=== PATIENT | female | born 2000 | race Caucasian/White ===

== ENCOUNTER 2020-05-18 16:38 | Emergency (ER) | payer MEDICAID, SELFPAY ==
[2020-05-18 17:23] VITALS: PULSE 78; RESP 16; TEMP 36.3; O2SAT 99; BMI 27.3
--- NOTE | 2020-05-18 17:45 | ED.URI ---
HPI - URI/Sore Throat General Chief Complaint: Upper Respiratory Symptoms <Liz Ozuna NP - Last Filed: 05/18/20 18:07> Stated Complaint: ?STREP THROAT <Liz Ozuna NP - Last Filed: 05/18/20 18:07> Time Seen by Provider: 05/18/20 17:45 <Liz Ozuna NP - Last Filed: 05/18/20 18:07> Source: patient <Liz Ozuna NP - Last Filed: 05/18/20 18:07> Mode of arrival: ambulatory <SHAHEED Castano Last Filed: 05/18/20 18:07> Limitations: no limitations <Liz Ozuna NP - Last Filed: 05/18/20 18:07> History of Present Illness HPI Narrative: Sore throat times several days. No fevers, chills. No cold-like symptoms. History of strep and feels similar. <Liz Ozuna NP - Last Filed: 05/18/20 18:07> MD elicited complaint: cough <SHAHEED Castano Last Filed: 05/18/20 18:07> Onset (ago): day(s) <SHAHEED Castano Last Filed: 05/18/20 18:07> Consistency: constant <Liz Ozuna NP - Last Filed: 05/18/20 18:07> Severity: mild <SHAHEED Castano Last Filed: 05/18/20 18:07> Able to tolerate fluids by mouth: Yes <SHAHEED Castano Last Filed: 05/18/20 18:07> Related Data Home Medications: Previous Rx's Medication Instructions Recorded acetaminophen 650 mg PO Q6H PRN #20 cap 05/18/20 amoxicillin 500 mg PO BID #14 cap 05/18/20 ibuprofen 600 mg PO Q8H PRN #20 tab 05/18/20 <SHAHEED Castano Last Filed: 05/18/20 18:07> Allergies/Adverse Reactions: Allergies Allergy/AdvReac Type Severity Reaction Status Date / Time No Known Allergies Allergy Verified 05/18/20 17:22 <Liz Ozuna NP - Last Filed: 05/18/20 18:07> Review of Systems Review of Systems: Yes all other systems are reviewed and are negative <Liz Ozuna NP - Last Filed: 05/18/20 18:07> Constitutional: Constitutional: Reports no additional constitutional complaints, Denies chills, Denies fever(s) and Denies headache(s) <Liz Ozuna NP - Last Filed: 05/18/20 18:07> Eyes: Eyes: Reports no additional eye complaints and Denies change in vision <Liz Ozuna NP - Last Filed: 05/18/20 18:07> ENT: Denies headache(s), Denies nasal congestion, Denies nasal discharge and Reports sore throat <Liz Ozuna NP - Last Filed: 05/18/20 18:07> Cardiovascular: Cardiovascular: Reports no additional cardiovascular complaints, Denies chest pain, Denies leg edema and Denies dyspnea <Liz Ozuna NP - Last Filed: 05/18/20 18:07> Respiratory: Respiratory: Reports no additional respiratory complaints, Denies cough and Denies dyspnea <Liz Ozuna NP - Last Filed: 05/18/20 18:07> Gastrointestinal: Gastrointestinal: Reports no additional gastrointestinal complaints, Denies abdominal pain, Denies diarrhea and Denies vomiting <Liz Ozuna NP - Last Filed: 05/18/20 18:07> Musculoskeletal: Musculoskeletal: Reports no additional musculoskeletal complaints, Denies arthralgias and Denies joint swelling <Liz Ozuna NP - Last Filed: 05/18/20 18:07> Integumentary/Breasts: Skin/Breast: Reports system reviewed and no additional complaints, except as docu and Denies rash <Liz Ozuna NP - Last Filed: 05/18/20 18:07> Neurologic: Reports system reviewed and no additional complaints, except as documented, Denies Abnormal speech present and Denies headache(s) <Liz Ozuna NP - Last Filed: 05/18/20 18:07> PMFSH Past Medical History Attestation statement: The following information was validated with the patient. <Liz Ozuna NP - Last Filed: 05/18/20 18:07> Source: obtained from family and nursing notes reviewed <Liz Ozuna NP - Last Filed: 05/18/20 18:07> Medical History: Medical History Strep pharyngitis <Liz Ozuna NP - Last Filed: 05/18/20 18:07> Social History Social History: Social History Advance Directives: No Advance Directives Information Provided: Yes <Liz Ozuna NP - Last Filed: 05/18/20 18:07> Physical Exam Vital Signs and I&O and Narrative: Vital Signs and I&O: Vital Signs Temp 97.3 F 05/18/20 17:23 Pulse 78 05/18/20 17:23 Resp 16 05/18/20 17:23 Pulse Ox 99 05/18/20 17:23 Intake & Output 05/18/20 05/18/20 05/19/20 06:59 18:59 06:59 Weight 70 kg Body Mass Index 27.3 <Liz Ozuna NP - Last Filed: 05/18/20 18:07> Vital Signs and I&O: Vital Signs Temp 97.3 F 05/18/20 17:23 Pulse 78 05/18/20 17:23 Resp 16 05/18/20 17:23 Pulse Ox 99 05/18/20 17:23 Intake & Output 05/18/20 05/18/20 05/19/20 06:59 18:59 06:59 Weight 70 kg Body Mass Index 27.3 <Eddie Obrien DO - Last Filed: 05/19/20 02:39> Const: General: cooperative, healthy appearing, comfortable and no acute distress <Liz Ozuna NP - Last Filed: 05/18/20 18:07> Orientation/consciousness: patient oriented x3 <Liz Ozuna NP - Last Filed: 05/18/20 18:07> Limitations: no limitations <SHAHEED Castano Last Filed: 05/18/20 18:07> HENMT: Head: Yes normal to inspection <Liz Ozuna NP - Last Filed: 05/18/20 18:07> Ears: hearing grossly normal bilaterally <Liz Ozuna NP - Last Filed: 05/18/20 18:07> General nose exam: Normal external nose present <Liz Ozuna NP - Last Filed: 05/18/20 18:07> Face and sinus: Yes normal facial exam <Liz Ozuna NP - Last Filed: 05/18/20 18:07> Mouth: Normal oral and palatal mucosa present <Liz Ozuna NP - Last Filed: 05/18/20 18:07> Throat: Yes tonsils normal ( Bilateral tonsillar exudate and erythema. Uvula midline), Yes abnormal tonsil and No peritonsillar mass <Liz Ozuna NP - Last Filed: 05/18/20 18:07> Eyes: General: appearance normal, both eyes and all related structures <Liz Ozuna NP - Last Filed: 05/18/20 18:07> Pupils: Equal, round and reactive pupils present <Liz Ozuna NP - Last Filed: 05/18/20 18:07> Neck: Neck: Yes normal visual inspection <Liz Ozuna NP - Last Filed: 05/18/20 18:07> Chest: Chest palpation & inspection: normal inspection of the chest <SHAHEED Castano Last Filed: 05/18/20 18:07> Resp: Effort & Inspection: normal respiratory effort <SHAHEED Castano Last Filed: 05/18/20 18:07> Auscultation: clear to auscultation bilaterally <Liz Ozuna NP - Last Filed: 05/18/20 18:07> Cardio: Rate: regular rate <Liz Ozuna NP - Last Filed: 05/18/20 18:07> Rhythm: regular rhythm <Liz Ozuna NP - Last Filed: 05/18/20 18:07> Peripheral pulses: Peripheral pulses 2+ throughout <Liz Ozuna NP - Last Filed: 05/18/20 18:07> GI: Inspection: Yes normal to inspection <Liz Ozuna NP - Last Filed: 05/18/20 18:07> Palpation (GI): Soft to palpation and nontender <Liz Ozuna NP - Last Filed: 05/18/20 18:07> Auscultation: normal bowel sounds <Liz Ozuna NP - Last Filed: 05/18/20 18:07> Back/Spine/Pelvis: Thoracic/Lumbar Spine: thoracic and lumbar spine normal to inspection <Liz Ozuna NP - Last Filed: 05/18/20 18:07> Skin: General skin exam: no rashes or lesions noted <Liz Ozuna NP - Last Filed: 05/18/20 18:07> Neuro: General: patient oriented x3, no focal motor deficits and normal sensation to monofilament <Liz Ozuna NP - Last Filed: 05/18/20 18:07> Cranial nerves: Yes Equal, round and reactive pupils present <Liz Ozuna NP - Last Filed: 05/18/20 18:07> Cognition (Neuro): normal cognition <Liz Ozuna NP - Last Filed: 05/18/20 18:07> Speech: No Abnormal speech present <Liz Ozuna NP - Last Filed: 05/18/20 18:07> Gait exam (Neuro): Normal gait present <Liz Ozuna NP - Last Filed: 05/18/20 18:07> Motor exam (neuro): 5/5 motor strength present throughout <Liz Ozuna NP - Last Filed: 05/18/20 18:07> Extrem: General: Yes normal to inspection <Liz Ozuna NP - Last Filed: 05/18/20 18:07> MDM - URI/Sore Throat MDM Narrative Medical decision making narrative: exam c/w with strep pharyngitis. Rapid strep pending. Will treat as presumed. <Liz Ozuna NP - Last Filed: 05/18/20 18:07> Discharge Plan Discharge Clinical Impression: Pharyngitis <Liz Ozuna NP - Last Filed: 05/18/20 18:07> Patient Disposition: Home, Self-Care <Liz Ozuna NP - Last Filed: 05/18/20 18:07> Instructions: Pharyngitis (ED) <Liz Ozuna NP - Last Filed: 05/18/20 18:07> Additional Instructions: Salt water gargles Motrin or Tylenol for pain or fever <Liz Ozuna NP - Last Filed: 05/18/20 18:07> Prescriptions: New amoxicillin 500 mg capsule 500 mg PO BID Qty: 14 RF: 0 ibuprofen 600 mg tablet 600 mg PO Q8H PRN (Reason: fever or pain) Qty: 20 RF: 0 acetaminophen 325 mg capsule 650 mg PO Q6H PRN (Reason: fever or pain) Qty: 20 RF: 0 <Liz Ozuna NP - Last Filed: 05/18/20 18:07> Referrals: Aaron Sky [Physician] - 2 days (if you want tonsils out) <Liz Ozuna NP - Last Filed: 05/18/20 18:07> Stand Alone Forms: Work/School Release <Liz Ozuna NP - Last Filed: 05/18/20 18:07> Interventions: ED Discharge Assessment Last Done: 05/18/20 19:34 <Liz Ozuna NP - Last Filed: 05/18/20 18:07> Discharge Date/Time: 05/18/20 18:30 <Liz Ozuna NP - Last Filed: 05/18/20 18:07>
== END 2020-05-18 18:30 | disposition home or self-care (01) ==
PROVIDERS: Emergency Provider Emergency Medicine
DX: J02.9 Acute pharyngitis, unspecified (principal)
CPT/HCPCS: 87071; 99283

== ENCOUNTER 2023-01-18 09:31 | Emergency (ER) | payer OTHER, SELFPAY ==
--- NOTE | ~2023-01-18 | XR_ITS ---
EXAMINATION: XR SHOULDER, RIGHT CLINICAL INFORMATION: Pain. Fall. COMPARISON: None available. TECHNIQUE: 3 views of the right shoulder. FINDINGS: The bones and soft tissues are normal. No fracture. Glenohumeral and acromioclavicular alignment is anatomic with normal joint space. No abnormal soft tissue calcifications. XR/XR shoulder RT min 2V IMPRESSION: Normal right shoulder.
[2023-01-18 09:34] VITALS: BP 144/88; PULSE 99; RESP 19; TEMP 36.6; O2SAT 98; BMI 31.9
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
[2023-01-18] MEDS: Ketorolac Tromethamine 30 MG/ML VIAL IM (10:26)
--- NOTE | 2023-01-18 10:27 | PC.NURSE ---
patient a&ox3, c/o rt arm pain, + csm/pulses to RUE, pt medicated per order, tech to apply sling, will continue to monitor
== END 2023-01-18 10:34 | disposition home or self-care (01) ==
PROVIDERS: Emergency Provider Internal Medicine
DX: S43.401A Unspecified sprain of right shoulder joint, initial encounter (principal); X58.XXXA Exposure to other specified factors, initial encounter; Y93.9 Activity, unspecified; Y92.9 Unspecified place or not applicable; Y99.9 Unspecified external cause status; Z79.899 Other long term (current) drug therapy
CPT/HCPCS: 73030; 96372; 99284; J1885

== ENCOUNTER 2023-06-24 10:03 | Emergency (ER) | payer OTHER, SELFPAY ==
--- NOTE | ~2023-06-24 | US_ITS ---
EXAMINATION: US OBSTETRICAL ULTRASOUND CLINICAL INFORMATION: 11 week , complains of vaginal pain COMPARISON: None available. LMP: 05/14/2023. Gestational age by maternal dates is 5 weeks and 6 days. Estimated date of delivery by maternal dates is 02/03/2023. TECHNIQUE: Real-time transabdominal and transvaginal vaginal ultrasound examination FINDINGS: There is no intrauterine gestational sac, no yolk sac, embryo/fetus, and cardiac activity. There is no significant subchorionic hemorrhage or hematoma. Endometrial stripe measures 0.49 cm in thickness. HR: Not demonstrated. MATERNAL ADNEXA: The right maternal ovary measures 2.4 x 2.0 x 2.1 cm. Inferior lateral to the right ovary, an isoechoic solid lesion is seen measuring 1.5 x 1.2 x 1.6 cm in size with vascular Doppler flow signals, The left maternal ovary measures 3.0 x 1.7 x 1.3 cm. There is no significant maternal adnexal mass. No maternal pelvic ascites. US/US OB pelvic and transvaginal IMPRESSION: 1. No evidence of intrauterine gestation. 2. Right adnexal solid lesion with vascular flow signal but without heartbeat is seen abutting the right ovary. Findings could be suspicious of ectopic . Correlation with beta hCG level is recommended.
[2023-06-24 10:09] VITALS: BP 149/92; PULSE 71; RESP 18; TEMP 36.7; O2SAT 100; BMI 29.3
[2023-06-24 10:34] LABS: MANUAL DIFF FLAG NO
[2023-06-24 10:36] LABS: Basophils Absolute Auto 0.1 X10*3/uL (0.0-0.2); Basophils Percent Auto 0.7 % (0-2); Eosinophils Absolute Auto 0.3 X10*3/uL (0.0-0.4); Eosinophils Percent Auto 3.6 % (0-4); Hematocrit 41.2 % (37.0-47.0); Hemoglobin 13.8 g/dl (12.0-16.0); Imm Gran Abs Auto 0.01 X10*3/uL (0.00-0.03); Imm Gran Pct Auto 0.1 % (0.0-0.4); Lymphocytes Absolute Auto 2.1 X10*3/uL (1.2-4.9); Lymphocytes Percent Auto 26.1 % (20-40); Mean Corpuscular HGB Conc 33.5 g/dl (31.0-35.0); Mean Corpuscular Hemoglobin 29.6 pg (27.0-33.0); Mean Corpuscular Volume 88.2 fL (80.0-98.0); Mean Platelet Volume 9.9 fL (9.4-12.3); Monocytes Absolute Auto 0.5 X10*3/uL (0.1-1.2); Monocytes Percent Auto 6.6 % (2-11); Neutrophils Absolute Auto 5.1 x10*3/uL (2.0-8.3); Neutrophils Percent Auto 62.9 % (45-73); Platelet Count 260 X10*3/uL (160-400); Red Blood Count 4.67 X10*6/uL (4.20-5.50); White Blood Count 8.1 X10*3/uL (4.8-10.8)
--- NOTE | 2023-06-24 10:38 | ED.FEMALEGU ---
HPI - Female Genitourinary General Chief complaint: Urogenital-Female Stated complaint: -vaginal bleeding Time Seen by Provider: 06/24/23 10:30 Source: patient Mode of arrival: ambulatory Limitations: no limitations History of Present Illness HPI Narrative: 22 yo female no PMH G1 LMP last normal one she thinks start of April finished an unusual menses 05/14 has had + home test. Has not seen OB yet. Over the weekend light spotting and cramping, no clots, no tissue, nothing heavier than a period and pain has now resolved. This is her first . No other symptoms. MD elicited complaint: vaginal bleeding and pelvic pain Onset (ago): day(s) (3) Location of symptoms: suprapubic Severity: mild Female Urogenital Radiation: Non-Radiating Quality of pain: cramping Consistency: now resolved Vaginal discharge: none Vaginal bleeding: scant Exacerbating factors: none Relieving factors: none Associated symptoms: denies other symptoms Treatment prior to arrival: none Sexual activity: Yes Patient : Yes Possible : at home test positive Date of Last Menstrual Period: 05/14/23 Related Data Previous Rx's Medication Instructions Recorded acetaminophen 325 mg capsule 650 mg (2 x 325 mg) PO Q6H PRN 05/18/20 fever or pain #20 caps amoxicillin 500 mg capsule 500 mg PO BID #14 caps 05/18/20 ibuprofen 600 mg tablet 600 mg PO Q8H PRN fever or pain 05/18/20 #20 tabs amoxicillin 875 mg-potassium 1 tab PO BID #14 tabs 01/18/23 clavulanate 125 mg tablet naproxen 500 mg tablet 500 mg PO BID PRN pain #20 tabs 01/18/23 Allergies Allergy/AdvReac Type Severity Reaction Status Date / Time No Known Allergies Allergy Verified 01/18/23 09:34 Review of Systems Review of Systems: Constitutional : No Fever, No Chills ENT/Mouth : No sore throat, No Rhinorrhea Eyes: No Eye Pain, No Redness Cardiovascular : No Chest Pain, No SOB Respiratory : No Cough, No Sputum, No Wheezing Gastrointestinal : no Nausea, No Vomiting, No Diarrhea, no abdominal pain, Genitourinary : positive irregular bleeding, No Dysuria, No Urinary Frequency, positive pelvic pain Musculoskeletal : No Myalgias Skin : No rash Neuro : No Weakness, No Headache Psych : No Anxiety/Panic, No Depression Heme/Lymph: No bruising, No Lymphadenopathy Endocrine : No Polyuria, No Polydipsia All other systems reviewed and are negative PMFSH Past Medical History Attestation statement: The following information was validated with the patient. Source: old records reviewed Medical History Strep pharyngitis Date of Last Menstrual Period: 05/14/23 Social History Social History Alcohol intake: current Alcohol intake frequency: holidays/special occasions only Smoked in Last 30 Days: Yes Use of substances other than those prescribed or required for medical reasons: Yes Substance Use Type: Marijuana Substance Use Frequency: Occasionally Advance Directives: No Advance Directives Information Provided: No Patient : Yes Physical Exam Vital Signs: Vital Signs: Last Vital Signs Temp 98.0 F 06/24/23 10:09 Pulse 71 06/24/23 10:09 Resp 18 06/24/23 10:09 BP 149/92 H 06/24/23 10:09 Pulse Ox 100 06/24/23 10:09 O2 Del Method Room Air 06/24/23 10:09 BMI result Body Mass Index 29.3 Appearance: Alert. Oriented X3. No acute distress. Eyes: Pupils equal, round and reactive to light. ENT: Pharynx normal. Neck: Normal inspection. Neck supple. CVS: Normal heart rate and rhythm. Pulses normal. Respiratory: No respiratory distress. Breath sounds normal. Abdomen: Soft and nontender. Skin: Skin warm and dry. Normal skin color. Normal skin turgor. Extremities: No lower extremity edema. No calf ttp Neuro: Oriented X 3. No motor deficit. No sensory deficit. Course Course Course Narrative: message sent to Dr. Burnett 1237pm Medical Decision Making Medical Decision Making MDM Narrative: 22 yo female G1 no PMH here with resolved abdominal cramping and light vaginal bleeding no other symptoms at this time will obtain Rh status, labs, quant and US to rule out ectopic vs IUP. Differential Diagnosis Differential Diagnoses: The differential diagnosis associated with the presentation includes threatened ab, early , ectopic, STI Admission/Observation Consideration of admission/observation: Escalation of care including admission/observation considered Consult Healthcare Provider Management of the patient was discussed with: Documentation Clerk Dr. Burnett will see her in office given options wants to wait 48 hours and expectant managment Lab Data MDM Lab Attestation statement: I reviewed the patient's lab results. 06/24/23 10:29 06/24/23 10:29 Labs: Lab Results 06/24/23 06/24/23 Range/Units 10:29 10:50 WBC 8.1 (4.8-10.8) X10*3/uL RBC 4.67 (4.20-5.50) X10*6/uL Hgb 13.8 (12.0-16.0) g/dl Hct 41.2 (37.0-47.0) % MCV 88.2 (80.0-98.0) fL MCH 29.6 (27.0-33.0) pg MCHC 33.5 (31.0-35.0) g/dl RDW 13.0 (11.0-16.0) % Plt Count 260 (160-400) X10*3/uL MPV 9.9 (9.4-12.3) fL Immature Gran % (Auto) 0.1 (0.0-0.4) % Neut % (Auto) 62.9 (45-73) % Lymph % (Auto) 26.1 (20-40) % [place] % (Auto) 6.6 (2-11) % Eos % (Auto) 3.6 (0-4) % Baso % (Auto) 0.7 (0-2) % Lymph # (Auto) 2.1 (1.2-4.9) X10*3/uL [place] # (Auto) 0.5 (0.1-1.2) X10*3/uL Eos # (Auto) 0.3 (0.0-0.4) X10*3/uL Baso # (Auto) 0.1 (0.0-0.2) X10*3/uL Abs Immat Gran (auto) 0.01 (0.00-0.03) X10*3/uL Absolute Neuts (auto) 5.1 (2.0-8.3) x10*3/uL Absolute Nucleated RBC 0.000 (0.0-0.012) X10*3/uL Nucleated RBC % (auto) 0.0 (0.0-0.2) /100WBC Sodium 138 (135-145) mmol/L Potassium 3.5 (3.3-5.1) mmol/L Chloride 106 (96-108) mmol/L Carbon Dioxide 25 (22-29) mmol/L Anion Gap 11 L (12-20) BUN 10 (9-16) mg/dL Creatinine 0.74 (0.5-1.4) mg/dL Estim Creat Clear Calc 110.2 Estimated GFR > 60 Random Glucose 106 (60-115) mg/dL Calcium 9.2 (8.4-10.2) mg/dL Total Bilirubin 0.3 (0.0-1.0) mg/dL Direct Bilirubin 0.1 (0.0-0.5) mg/dL AST 18 (5-31) U/L ALT 22 (0-31) U/L Alkaline Phosphatase 59 (39-117) U/L Total Protein 7.3 (6.5-8.0) g/dL Albumin 4.5 (3.5-5.0) g/dL Beta HCG, Quant 56 mIU/mL Urine Color Yellow Urine Appearance Clear Urine pH 7.0 (5.0-9.0) Ur Specific [place] 1.025 (1.005-1.025) Urine Protein Negative (Neg-Trace) mg/dL Urine Glucose (UA) Negative (Negative) mg/dL Urine Ketones Negative (Negative) mg/dL Urine Blood Large (3+) H (Negative) Urine Nitrite Negative (Negative) Ur Leukocyte Esterase Negative (Negative) Urine RBC 3-5 H (0-2) /HPF Urine WBC 0-5 (0-5) /HPF Ur Squamous Epith Cells 3-5 (0-2) /HPF Urine Bacteria 1+ (None Seen) Hyaline Casts 0-2 (0-2) /LPF Blood Type AB Positive Independent Interpretation I performed an independent interpretation of an: Ultrasound Radiology Impression Discussion of test interpretation with radiology: I have reviewed the radiologist's reading. Independent Historian Clinical information obtained from an independent historian. History obtained from or confirmed by: Friend Discharge Plan Discharge Clinical Impression: Early stage of , Adnexal mass Patient Disposition: Home, Self-Care Instructions: (ED), Ectopic (DC) Additional Instructions: quant 56, AB positive blood type return for worsening pain, fevers, fainting, worsening bleeding or any other concerns follow up as planned with Dr. Burnett FINDINGS: There is no intrauterine gestational sac, no yolk sac, embryo/fetus, and cardiac activity. There is no significant subchorionic hemorrhage or hematoma. Endometrial stripe measures 0.49 cm in thickness. HR: Not demonstrated. MATERNAL ADNEXA: The right maternal ovary measures 2.4 x 2.0 x 2.1 cm. Inferior lateral to the right ovary, an isoechoic solid lesion is seen measuring 1.5 x 1.2 x 1.6 cm in size with vascular Doppler flow signals, The left maternal ovary measures 3.0 x 1.7 x 1.3 cm. There is no significant maternal adnexal mass. No maternal pelvic ascites. US/US OB pelvic and transvaginal IMPRESSION: 1. No evidence of intrauterine gestation. 2. Right adnexal solid lesion with vascular flow signal but without heartbeat is seen abutting the right ovary. Findings could be suspicious of ectopic . Correlation with beta hCG level is recommended. Prescriptions: No Action amoxicillin 500 mg capsule 500 mg PO BID Qty: 14 0RF ibuprofen 600 mg tablet 600 mg PO Q8H PRN (Reason: fever or pain) Qty: 20 0RF acetaminophen 325 mg capsule 650 mg PO Q6H PRN (Reason: fever or pain) Qty: 20 0RF amoxicillin-pot clavulanate 875-125 mg tablet 1 tab PO BID Qty: 14 0RF naproxen 500 mg tablet 500 mg PO BID PRN (Reason: pain) Qty: 20 0RF Referrals: Jadon Burnett MD [Physician] - (2 days as discussed) Stand Alone Forms: Work/School Release
[2023-06-24 10:57] LABS: Anion Gap 11 (12-20); Blood Urea Nitrogen 10 mg/dL (9-16); Calcium 9.2 mg/dL (8.4-10.2); Carbon Dioxide 25 mmol/L (22-29); Chloride 106 mmol/L (96-108); Creatinine Clr Calc Pharmacy 110.2; Estimated Glomerular Filt Rate > 60; Glucose Random 106 mg/dL (60-115); Potassium 3.5 mmol/L (3.3-5.1); Sodium 138 mmol/L (135-145)
[2023-06-24 10:58] LABS: HCG Quantitative 56 mIU/mL
[2023-06-24 11:03] LABS: Appearance Urine Clear; Color Urine Yellow; Glucose Urine UA Negative (Negative); Leukocyte Esterase Urine Negative (Negative); Nitrite Urine Negative (Negative); Specific Gravity - Urine 1.025 (1.005-1.025); UMIC TRIGGER UACC YES; Urine Blood Large (3+) (Negative); Urine Ketones Negative (Negative); Urine Protein Negative (Neg-Trace)
--- NOTE | 2023-06-24 11:08 | PC.NURSE ---
Assumed care of patient at 1100, patient resting on stretcher at this time. Alert and oriented x4, respirations even and unlabored, skin pwd, speaking in clear full sentences, no apparent distress. Awaiting ultrasound at this time
[2023-06-24 11:22] LABS: Bacteria Urine 1+ (None Seen); Hyaline Casts Urine 0-2 /LPF (0-2); WBC Urine 0-5 /HPF (0-5)
--- NOTE | 2023-06-24 12:41 | PM.GYNCN ---
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 On 05/14, the patient had had + home test on 06/11, started having light vaginal spotting , was followed by a 1 day of heavier vaginal bleeding and pelvic cramping, since then the patient has been having vaginal spotting, no heavy bleeding, no pelvic pain . No additional concerns. Blood type AB-positive, hCG 56. H&H within normal cc:: CC: OB [facility] Past Medical History Medical History Strep pharyngitis Social History Social History Alcohol intake: current Alcohol intake frequency: holidays/special occasions only Smoked in Last 30 Days: Yes Use of substances other than those prescribed or required for medical reasons: Yes Substance Use Type: Marijuana Substance Use Frequency: Occasionally Advance Directives: No Advance Directives Information Provided: No Patient : Yes Meds Allergies Allergy/AdvReac Type Severity Reaction Status Date / Time No Known Allergies Allergy Verified 01/18/23 09:34 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 Physical Exam Vitals Vital signs: Temp Pulse Resp BP Pulse Ox O2 Del Method 98.0 F 71 18 149/92 H 100 Room Air 06/24/23 10:09 06/24/23 10:09 06/24/23 10:09 06/24/23 10:09 06/24/23 10:09 06/24/23 10:09 BMI result Body Mass Index 29.3 Abdomen Auscultation/Inspection/Palpation: Soft, Non-distended and No tenderness Female Genitalia (Pelvic) Vagina: Nontender Cervix: Grossly normal Uterus: Normal size Adnexa/Parametria: Adnexal Tenderness: None, Adnexal Mass: None, Parametrial Tenderness: None and Parametrial Mass: None [employer]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 - Results Labs 06/24/23 10:29 06/24/23 10:29 Labs: Short CBC 06/24/23 Range/Units 10:29 WBC 8.1 (4.8-10.8) X10*3/uL Hgb 13.8 (12.0-16.0) g/dl Hct 41.2 (37.0-47.0) % Plt Count 260 (160-400) X10*3/uL BMP 06/24/23 10:29 Sodium 138 Potassium 3.5 Chloride 106 Carbon Dioxide 25 BUN 10 Creatinine 0.74 Calcium 9.2 Urine 06/24/23 Range/Units 10:50 Urine Color Yellow Urine Appearance Clear Urine pH 7.0 (5.0-9.0) Ur Specific [place] 1.025 (1.005-1.025) Urine Protein Negative (Neg-Trace) mg/dL Urine Glucose (UA) Negative (Negative) mg/dL Imaging US - abdomen: Radiologist's impression: ITS Impressions Pelvic/Transvag US 06/24/23 12:09 IMPRESSION: 1. No evidence of intrauterine gestation. 2. Right adnexal solid lesion with vascular flow signal but without heartbeat is seen abutting the right ovary. Findings could be suspicious of ectopic . Correlation with beta hCG level is recommended. Assessment and Plan (1) Early stage of : Status: Acute Discussed with the patient the level of HCG l and the finding on ultrasound showing a right 1.5 x 1.6 vascular structures, with no evidence of IUP The differential diagnosis discussed with the patient included either early ectopic versus early SAB with a small possibility of normal intrauterine gestation. Options of treatment were discussed with the patient includin- Expected management for the coming 48 hours and repeat HCG with or without pelvic Ultrasound. 2- Treat as if she has tubal with methotrexate or 3- Uterine aspiration. All the pros and cons and risks and benefits of each treatment approach were discussed with the patient. 1-The advantage of expectant management were discussed with the patient, being prevention of possible exposure to teratogenicity or risk of spontaneous in case of an early normal , the risk being delayed diagnosis and treatment of ectopic and possible rupture with all its possible consequences including intra-abdominal bleed and possible . 2- Explained to the patient that the use of curettage as a diagnostic tool is limited by the potential for disruption of a viable . In addition, discussed with the patient that the sensitivity of curettage in finding chorionic villi is only 70 percent. [place] endometrial biopsy is even less sensitive than curettage for detection of villi; sensitivities reported is between 30 and 60 percent. If curettage is performed, serum HCG levels can be followed postcurettage if histopathology does not confirm the clinical impression. When an IUP has been evacuated, hCG levels should drop by at least 15 percent the day after evacuation. There might be an advantage of performing aspiration only on patients with both an HCG concentration below the discriminatory zone and a low doubling rate, since 30 percent of these patients have a nonviable intrauterine gestation, and the remainder have an ectopic . Knowing the results of aspiration avoids unnecessary methotrexate treatment of the 30 percent of patients without ectopic . 3-Furthermore discussed with the patient the 3rd option which is treatment with methotrexate without uterine aspiration. The advantage of early treatment of presumed tubal with methotrexate was discussed with the patient, including but not limited to reducing the risk of ruptured ectopic with all its potential consequences, in addition discussed with the patient methotrexate treatment risks including but not limited to, possible exposure to methotrexate to a normal intra and and increase the risk of spontaneous and congenital anomalies. The patient decided to wait 48 hours repeat HCG and treat accordingly. Instructions given to the patient to the importance of compliance and timely HCG follow-up in 48 hours for an early and accurate diagnosis, and to call or go to the emergency room if pain or vaginal bleeding occurs, all questions answered, the patient verbalized understanding and agreed with the plan. Follow-up in 48 hours for further management.
[2023-06-24 12:52] LABS: Alanine Aminotransferase 22 U/L (0-31); Albumin Level 4.5 g/dL (3.5-5.0); Alkaline Phosphatase 59 U/L (39-117); Aspartate Amino Transferase 18 U/L (5-31); Bilirubin Direct 0.1 mg/dL (0.0-0.5); Bilirubin Total 0.3 mg/dL (0.0-1.0); Total Protein 7.3 g/dL (6.5-8.0)
[2023-06-24 15:34] LABS: CT PCR NOT DETECTED (Not Detect.); NG PCR NOT DETECTED (Not Detect.)
[2023-06-25 10:10] LABS: BV Int Neg Control Negative (Negative); BV Int Pos Control Positive (Positive)
== END 2023-06-24 13:34 | disposition home or self-care (01) ==
PROVIDERS: Emergency Provider Emergency Medicine
DX: O46.91 Antepartum hemorrhage, unspecified, first trimester (principal); Z72.89 Other problems related to lifestyle
CPT/HCPCS: 0353U; 36415; 76801; 76817; 80048; 80076; 81001; 81003; 84702; 85025; 86900; 86901; 87480; 87510; 87660; 99284

== ENCOUNTER → 2023-06-24 10:56 | Outpatient (BNV) | payer SELFPAY | PROVIDERS: Emergency Provider Emergency Medicine; Visit Provider Obstetrics & Gynecology | DX: Z34.90 Encounter for supervision of normal pregnancy, unspecified, unspecified trimester (principal) | CPT/HCPCS: 99283 ==

== ENCOUNTER 2023-06-26 08:26 | Outpatient (REF) | payer OTHER, SELFPAY ==
--- NOTE | ~2023-06-26 | US_ITS ---
EXAMINATION: US OBSTETRICAL ULTRASOUND CLINICAL INFORMATION: follow-up COMPARISON: 06/24/2023 LMP: 05/14/2023. Gestational age by maternal dates is 6 weeks 1 day. Estimated date of delivery by maternal dates is 02/18/2024. TECHNIQUE: Endovaginal sonography FINDINGS: No IUP observed. No evidence for a gestational sac or yolk sac or pole. Uterus appears unremarkable. Endometrial echo complex is 3 mm. No uterine masses. No ascites. Right ovary demonstrates normal color flow at 24 x 18 x 22 mm. Small follicles noted. Just adjacent and inferior to the right ovary again note is made of a solid rounded mass at 12 x 13 x 12 mm as was seen on the prior study. I cannot exclude an ectopic gestation within the right adnexa. Please correlate with serial quantitative beta hCG. Left ovary is unremarkable at 27 x 16 x 17 mm. Small follicles noted. US/US OB pelvic and transvaginal IMPRESSION: No evidence for intrauterine gestation. Right adnexal lesion without heartbeat again seen. This could reflect an ectopic gestation. Please correlate with serial quantitative beta hCG.
[2023-06-26 10:47] LABS: HCG Quantitative 47 mIU/mL
== END 2023-06-26 08:27 | disposition home or self-care (01) ==
LOC: HO.LAB 08:26
PROVIDERS: Visit Provider Obstetrics & Gynecology
DX: N93.9 Abnormal uterine and vaginal bleeding, unspecified (principal); R10.2 Pelvic and perineal pain; N83.9 Noninflammatory disorder of ovary, fallopian tube and broad ligament, unspecified
CPT/HCPCS: 36415; 76801; 76817; 84702; 99212

== ENCOUNTER 2023-06-26 11:33 | Outpatient (AMB) | payer SELFPAY ==
--- NOTE | 2023-06-26 11:39 | A.OFFVIS_ITS ---
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 Patient went to the emergency room 2 days ago, G1 para 0 LMP ? 05/13 The patient had had + home test on 06/11, and started having light vaginal spotting , this was followed by a 1 day of heavier vaginal bleeding and pelvic cramping, since then the patient has been having vaginal spotting, no heavy bleeding, no pelvic pain . No additional concerns. In the emergency room the following workup was done Blood type AB-positive, hCG 56. H&H within normal, GC/chlamydia negative, BV panel negative except for positive cardinal, the patient does not have any BV symptoms. Ultrasound showed the following: There is no intrauterine gestational sac, no yolk sac, embryo/fetus, and cardiac activity. There is no significant subchorionic hemorrhage or hematoma. Endometrial stripe measures 0.49 cm in thickness. HR: Not demonstrated. MATERNAL ADNEXA: The right maternal ovary measures 2.4 x 2.0 x 2.1 cm. Inferior lateral to the right ovary, an isoechoic solid lesion is seen measuring 1.5 x 1.2 x 1.6 cm in size with vascular Doppl er flow signals, The left maternal ovary measures 3.0 x 1.7 x 1.3 cm. There is no significant maternal adnexal mass. No maternal pelvic ascites. The patient was counseled about different options of treatment and elected to proceed with expectant management. The patient is doing well with no complaints no pelvic cramping or pain , only having minimal vaginal bleeding. Repeat hCG done today was down to 47. Repeat ultrasound today showed the following: No IUP observed. No evidence for a gestational sac or yolk sac or pole. Uterus appears unremarkable. Endometrial echo complex is 3 mm. No uterine masses. No ascites. Right ovary demonstrates normal color flow at 24 x 18 x 22 mm. Small follicles noted. Just adjacent and inferior to the right ovary again note is made of a solid rounded mass at 12 x 13 x 12 mm as was seen on the prior study. I cannot exclude an ectopic gestation within the right adnexa. Please correlate with serial quantitative beta hCG. Left ovary is unremarkable at 27 x 16 x 17 mm. Small follicles noted. PFSH Medical History Strep pharyngitis Social History Alcohol intake: current Alcohol intake frequency: holidays/special occasions only Substance Use Type: Marijuana Physical Exam Vital Signs: Last Vital Signs BP 132/86 06/26/23 11:40 BMI result Body Mass Index 29.0 GI Palpation (GI): Soft to palpation and nontender Percussion: Yes normal to percussion Assessment & Plan Assessment & Plan (1) Early stage of : Code(s): Z34.90 - Encounter for supervision of normal , unspecified, unspecified trimester Plan: Discussed with the patient the decreasing levels of HCG and the finding on ultrasound showing a right medial adnexal right mass measuring 1.2 x 1.3 by 1.2 cm no IUP suspicious of ectopic . The Options of treatment were discussed with the patient includin- Expected management for the coming 48 hours and repeat HCG with or without pelvic Ultrasound. 2- Treat as if she has tubal with methotrexate or 3- Uterine aspiration. All the pros and cons and risks and benefits of each treatment approach were discussed with the patient. 1-The advantage of expectant management were discussed with the patient, being prevention of possible exposure to teratogenicity or risk of spontaneous in case of an early normal , the risk being delayed diagnosis and treatment of ectopic and possible rupture with all its possible consequences including intra-abdominal bleed and possible . 2- Explained to the patient that the use of curettage as a diagnostic tool is limited by the potential for disruption of a viable . 3-Furthermore discussed with the patient the 3rd option which is treatment with methotrexate without uterine aspiration. The advantage of early treatment of presumed tubal with methotrexate was discussed with the patient, including but not limited to reducing the risk of ruptured ectopic with all its potential consequences, in addition discussed with the patient methotrexate treatment risks including but not limited to, possible exposure to methotrexate to a normal intra and and increase the risk of spontaneous and congenital anomalies. The patient decided to wait 48 hours repeat HCG and treat accordingly. Discussed with the patient the decreasing HCG values suggest a failing and may be used to monitor spontaneous resolution, but this decrease should not be considered diagnostic. A woman with decreasing HCG values could still have a possible ectopic and should be monitored until non levels are reached because rupture of an ectopic can occur while levels are decreasing or are very low. Instructions given to the patient to the importance of compliance and timely HCG follow-up in 48 hours for an early and accurate diagnosis, and to call or go to the emergency room if pain or vaginal bleeding occurs, all questions answered, the patient verbalized understanding and agreed with the plan. Will repeat hCG every 48 hours and Follow-up in 48 hours for further management. All questions answered the patient verbalized understanding and agreed with the plan Orders: Orders HCG Quantitative 2 Days Z34.90 - Encounter for supervision of normal , unspecified, unspecified trimester HCG Quantitative Today Z34.90 - Encounter for supervision of normal , unspecified, unspecified trimester Coding Level of Care Code Est Pt Level 3 (90414) Diagnoses Early stage of Z34.90
[2023-06-26 11:40] VITALS: BP 132/86; BMI 29.0
== END 2023-06-26 15:06 | disposition home or self-care (01) ==
PROVIDERS: Visit Provider Obstetrics & Gynecology
DX: Z34.90 Encounter for supervision of normal pregnancy, unspecified, unspecified trimester (principal)
CPT/HCPCS: 99213

== ENCOUNTER 2023-06-28 08:24 | Outpatient (REF) | payer OTHER, SELFPAY ==
[2023-06-28 10:59] LABS: HCG Quantitative 36 mIU/mL
== END 2023-06-28 08:25 | disposition home or self-care (01) ==
LOC: HO.LAB 08:24
PROVIDERS: Visit Provider Obstetrics & Gynecology
DX: Z34.90 Encounter for supervision of normal pregnancy, unspecified, unspecified trimester (principal)
CPT/HCPCS: 36415; 84702; 99212

== ENCOUNTER 2023-06-28 10:28 | Outpatient (AMB) | payer SELFPAY ==
[2023-06-28 10:34] VITALS: BP 126/80; BMI 28.9
--- NOTE | 2023-06-28 10:34 | A.OFFVIS_ITS ---
Intake Vital Signs 06/28/23 10:34 Height 5 ft 2 in Weight 158 lb BMI 28.9 BP 126/80 Intake Visit Reasons: HCG Follow up [employer] Sticker Required: No Allergies No Known Allergies Allergy (Verified 06/28/23 10:35) HPI HPI Comments History of Present Illness Details Presenting for hCG follow-up, hCG dropped down to 36 from 47. The patient is doing well with no complaints no pelvic pain and or vaginal bleeding/spotting. PFSH Medical History Strep pharyngitis Social History Alcohol intake: current Alcohol intake frequency: holidays/special occasions only Substance Use Type: Marijuana Female Reproductive History Menstrual control method: none Physical Exam Vital Signs: Last Vital Signs BP 126/80 06/28/23 10:34 BMI result Body Mass Index 28.9 GI Palpation (GI): Soft to palpation and nontender Assessment & Plan Assessment & Plan (1) Early stage of : Code(s): Z34.90 - Encounter for supervision of normal , unspecified, unspecified trimester Plan: Discussed with patient the result hCG dropping, will repeat hCG in 3 days. Instructions given the patient to call or go to the in case pelvic pain, vaginal bleeding. instruction given to the patient to schedule a follow-up in 72 hours for further management. All questions answered the patient verbalized understanding and agreed with the plan Coding Level of Care Code Est Pt Level 3 (15398) Diagnoses Early stage of Z34.90
== END 2023-06-28 11:33 | disposition home or self-care (01) ==
LOC: HO.HWS 10:28
PROVIDERS: Visit Provider Obstetrics & Gynecology
DX: Z34.90 Encounter for supervision of normal pregnancy, unspecified, unspecified trimester (principal)
CPT/HCPCS: 99213

== ENCOUNTER 2023-07-01 07:39 | Outpatient (REF) | payer OTHER, SELFPAY ==
[2023-07-01 08:35] LABS: HCG Quantitative 26 mIU/mL
== END 2023-07-01 07:40 | disposition home or self-care (01) ==
LOC: HO.LAB 07:39
PROVIDERS: Visit Provider Obstetrics & Gynecology
DX: O03.9 Complete or unspecified spontaneous abortion without complication (principal); Z30.46 Encounter for surveillance of implantable subdermal contraceptive; Z32.02 Encounter for pregnancy test, result negative
CPT/HCPCS: 11982; 36415; 81025; 84702; 99212

== ENCOUNTER 2023-07-01 14:47 | Outpatient (AMB) | payer SELFPAY ==
[2023-07-01 15:35] VITALS: BP 118/72
--- NOTE | 2023-07-01 15:35 | A.OFFVIS_ITS ---
Intake Vital Signs 07/01/23 15:35 BP 118/72 Intake Visit Reasons: Nexplanon Removal/HCG follow up per Allergies No Known Allergies Allergy (Verified 06/28/23 10:35) HPI HPI Comments History of Present Illness Details Presenting for hCG follow-up, hCG dropped down to 26 from 36. The patient is doing well with no complaints no pelvic pain and or vaginal bleeding/spotting. In addition the patient is interested in having her Nexplanon taken out since it is [facility] Medical History Strep pharyngitis Social History Alcohol intake: current Alcohol intake frequency: holidays/special occasions only Substance Use Type: Marijuana Physical Exam Vital Signs: Last Vital Signs BP 118/72 07/01/23 15:35 GI Inspection: Yes normal to inspection Palpation (GI): Soft to palpation and nontender Office Procedures Contraception Insert/Removal Details Details: Counseling/Consent: After discussing with the patient the risks of the procedure including bleeding, infection, scar tissue formation, , possible injury to blood vessels or nerves, chronic arm pain, blood transfusion, and irregular unpredictable bleeding Preopdx: Requesting Nexplanon removal Op: Nexplanon Removal Post op dx: same EBL= 10 cc Procedure: After discussing with the patient the risks of the procedure including bleeding, infection, scar tissue formation, the patient signed the consent and agreed with the plan; all questions answered. The patient was then put in the dorsal supine position with Left arm in which Nexplanon is located exposed. Then the area was scrubbed with betadine. Nexplanon was located next by palpation and the end closest to the elbow was marked with a sterile marker. 5cc 1% Xylocaine was used to anesthetize the area at the site near the tip of Nexplanon. Next, a 3 mm incision in the longitudinal direction of the arm at the tip of the implant was made and the Nexplanon was pushed toward the incision until the tip was visible. The implant was grasped with a curved mosquito forceps and pulled out gently. Then incision was closed with steri-strips approximating the edges and an adhesive bandage was applied. A pressure bandage was applied with sterile gauze to minimize bruising. At the end explained to the patient that she is not covered with contraception anymore and recommended for her to use another contraceptive method. Discharge instructions: Patient was instructed to call if any of the following occurs :temperature above 100.4, pain at the side of the incision, redness, discharge or gapping, arm pain or bleeding. All questions answered patient verbalized understanding . This note was generated with a voice recognition program. Some errors may have been overlooked during the review of this note. Sometimes these errors may affect the content or meaning of a given sentence. 56081 - Removal Results AMB Test Urine AMB Test Urine Negative Last Edit by Chantal Turner CMA on 15:37 Assessment & Plan Assessment & Plan (1) Complete : Code(s): O03.9 - Complete or unspecified spontaneous without complication Plan: Discussed with patient the trend of hCG dropping is in line with complete diagnosis, recommended a repeat hCG in a week if not 0 will follow it down to non levels. Instructions given the patient to call in case of pelvic pain and/ or vaginal bleeding. All questions answered, the patient verbalized understanding (2) Nexplanon removal: Code(s): Z30.46 - Encounter for surveillance of implantable subdermal contraceptive Plan: Nexplanon removed, see procedure note (3) Family planning: Code(s): Z30.09 - Encounter for other general counseling and advice on contraception Plan: Discussed with the patient the different options of control including control pills/Nuvaring, DMPA, different types of IUD ?s ( cu vs progesterone) . All the pros, cons, risks and benefits of each were discussed with the patient. The patient decided to think about it and get back to us. Instructions given the patient to the backup method for control to decrease the risk of getting and all questions answered, the patient verbalized understanding Orders: Orders HCG Quantitative Today Z34.90 - Encounter for supervision of normal , unspecified, unspecified trimester HCG Quantitative 1 Week O03.9 - Complete or unspecified spontaneous without complication AMB HCG Urine Test Today Z32.02 - Encounter for test, result negative Coding Level of Care Code Est Pt Level 3 (29853) Procedure Only Diagnoses Complete O03.9 Nexplanon removal Z30.46 Family planning Z30.09 CPT Codes Details - Contraception: 40138 - Removal ([id number])
== END 2023-07-01 17:19 | disposition home or self-care (01) ==
PROVIDERS: Visit Provider Obstetrics & Gynecology
DX: O03.9 Complete or unspecified spontaneous abortion without complication (principal); Z30.46 Encounter for surveillance of implantable subdermal contraceptive; Z32.02 Encounter for pregnancy test, result negative; Z30.09 Encounter for other general counseling and advice on contraception
CPT/HCPCS: 11982; 99213